=== PATIENT | female | born 1970 | race Caucasian/White ===

== ENCOUNTER 2017-07-06 11:11 | Emergency (ER) | payer MEDICAID ==
[~2017-07-06] VITALS: Ht 152.4 cm; Wt 52.3 kg
[2017-07-06 12:20] VITALS: BP 122/87
== END 2017-07-06 12:33 | disposition home or self-care (01) ==
LOC: EMS 11:12
DX: H91.8X9 Other specified hearing loss, unspecified ear (principal); F17.210 Nicotine dependence, cigarettes, uncomplicated
CPT/HCPCS: 99281; 99406

== ENCOUNTER 2017-12-31 09:32 | Emergency (ER) | payer MEDICAID ==
[~2017-12-31] VITALS: Ht 162.6 cm; Wt 63.5 kg
[2017-12-31 12:54] VITALS: BP 110/72
== END 2017-12-31 13:05 | disposition home or self-care (01) ==
LOC: EMS 09:33
DX: H57.02 Anisocoria (principal); F17.210 Nicotine dependence, cigarettes, uncomplicated; F20.9 Schizophrenia, unspecified; F19.10 Other psychoactive substance abuse, uncomplicated; Z98.51 Tubal ligation status; Z98.890 Other specified postprocedural states
CPT/HCPCS: 70450; 99284

== ENCOUNTER 2018-04-14 13:09 | Emergency (ER) | payer MEDICAID ==
[~2018-04-14] VITALS: Ht 152.4 cm; Wt 72.3 kg
[2018-04-14 13:58] VITALS: BP 125/79
== END 2018-04-14 14:46 | disposition home or self-care (01) ==
LOC: EMS 13:12
DX: M54.5 Low back pain (principal); R03.0 Elevated blood-pressure reading, without diagnosis of hypertension; F15.10 Other stimulant abuse, uncomplicated; F20.9 Schizophrenia, unspecified; F17.210 Nicotine dependence, cigarettes, uncomplicated
CPT/HCPCS: 99283

== ENCOUNTER 2018-07-29 16:14 | Emergency (ER) | payer MEDICAID ==
[~2018-07-29] VITALS: Ht 165.1 cm; Wt 75.0 kg
[2018-07-29 18:53] VITALS: BP 125/70
== END 2018-07-29 18:56 | disposition home or self-care (01) ==
LOC: EMS 16:15
DX: L84 Corns and callosities (principal); R03.0 Elevated blood-pressure reading, without diagnosis of hypertension; F20.9 Schizophrenia, unspecified; F17.210 Nicotine dependence, cigarettes, uncomplicated; F15.90 Other stimulant use, unspecified, uncomplicated; Z98.51 Tubal ligation status
CPT/HCPCS: 99284

== ENCOUNTER 2020-02-22 20:00 | Emergency (ER) | payer MEDICAID ==
[~2020-02-22] VITALS: Ht 154.9 cm; Wt 88.6 kg
[2020-02-22] MEDS ORDERED: SODIUM CHLORIDE 0.9% 2,700 ML IV ONE (21:15)
[2020-02-22] MEDS ORDERED: ACETAMINOPHEN 500 MG TABLET PO ONE (21:15)
[2020-02-22 21:39] LABS: EOSINOPHILS % (AUTO) 0.4 % (1.0-6.0); HEMATOCRIT 41.6 % (36-46); HEMOGLOBIN 13.5 g/dL (12.0-16.0); MEAN CORPUSCULAR HEMOGLOBIN 29.2 pg (26.0-34.0); MEAN CORPUSCULAR HGB CONC 32.5 G/dL (31.0-37.0); MEAN CORPUSCULAR VOLUME 90 fL (80-100); MONOCYTES # (AUTO) 1.1 K/uL (0.1-1.0); MONOCYTES % (AUTO) 9.3 % (2.0-9.0); NEUTROPHILS # (AUTO) 8.4 K/uL (1.8-7.7); NEUTROPHILS % (AUTO) 72.3 % (40.0-70.0); PLATELET COUNT (AUTO) 218 K/uL (150-450); RED BLOOD CELL COUNT(AUTO) 4.63 MIL/uL (4.00-5.20); RED CELL DISTRIBUTION WIDTH 14.5 % (11.5-14.5)
[2020-02-22 21:54] LABS: ANION GAP 12 mmol/L (8-16); CALCIUM, TOTAL 9.3 mg/dL (8.8-10.5); CARBON DIOXIDE 24 mmol/L (22-29); CHLORIDE 102 mmol/L (98-107); CREATININE 0.91 mg/dL (0.60-1.30); GLOMERULAR FILTR. RATE CALC > 60 mL/min (>60); GLUCOSE,RANDOM 104 mg/dL (70-110); POTASSIUM 4.1 mmol/L (3.5-5.1); SODIUM SERUM 138 mmol/L (136-145); UREA NITROGEN, BLOOD 14 mg/dL (7-18)
[2020-02-22 22:13] LABS: B-TYPE NATRIURETIC PEPTIDE 11 pg/mL (0-100)
[2020-02-22 22:17] LABS: LACTIC ACID 0.7 mmol/L (0.4-2.0)
[2020-02-22 22:20] LABS: ALANINE AMINOTRANSFERASE 21 U/L (12-78); ALBUMIN 3.7 g/dL (3.4-5.0); ALKALINE PHOSPHATASE 108 U/L (46-116); ASPARTATE AMINOTRANSFERASE 15 U/L (15-37); BILIRUBIN,TOTAL 0.1 mg/dL (0.1-1.0); HCG,QUANTITATIVE 3 mIU/mL (0-6); LIPASE 161 U/L (73-393); TOTAL PROTEIN, SERUM 7.6 g/dL (6.4-8.2)
[2020-02-22 23:27] LABS: INFLUENZA TYPE A NEGATIVE FOR TYPE A (NEGATIVE); INFLUENZA TYPE B NEGATIVE FOR TYPE B (NEGATIVE)
[2020-02-22 23:56] LABS: APPEARANCE,URINE CLEAR (CLEAR); BILIRUBIN,URINE NEGATIVE (NEGATIVE); GLUCOSE, URINE (UA) NEGATIVE (NEGATIVE); KETONES,URINE NEGATIVE (NEGATIVE); LEUKOCYTE ESTERASE ,URINE TRACE (NEGATIVE); NITRATE,URINE NEGATIVE (NEGATIVE); OCCULT BLOOD,URINE MODERATE (NEGATIVE); PROTEIN,URINE NEGATIVE (NEGATIVE)
[2020-02-23 00:02] LABS: AMPHET/METH SCREEN,URINE NEGATIVE (NEGATIVE); BARBITURATE SCREEN, URINE NEGATIVE (NEGATIVE); BENZODIAZEPINES SCREEN,URINE NEGATIVE (NEGATIVE); CANNABINOID SCREEN,URINE NEGATIVE (NEGATIVE); COCAINE SCREEN,URINE NEGATIVE (NEGATIVE); METHADONE SCREEN, URINE NEGATIVE (NEGATIVE); OPIATE SCREEN,URINE NEGATIVE (NEGATIVE)
[2020-02-23 00:03] LABS: PHENCYCLIDINE SCREEN,URINE NEGATIVE (NEGATIVE)
[2020-02-23 00:07] LABS: BACTERIA,URINE None Seen /HPF (None Seen); SQUAMOUS EPITHELIAL CELL,UR Rare /LPF (None Seen); WBC,URINE 0-2 /HPF (0-5)
[2020-02-23 01:15] VITALS: BP 107/56
== END 2020-02-23 01:57 | disposition home or self-care (01) ==
LOC: EMS 20:02
DX: R50.9 Fever, unspecified (principal); F17.210 Nicotine dependence, cigarettes, uncomplicated; F20.9 Schizophrenia, unspecified; F15.10 Other stimulant abuse, uncomplicated; Z03.818 Encounter for observation for suspected exposure to other biological agents ruled out
CPT/HCPCS: 36415; 71045; 80053; 80307; 81001; 83605; 83690; 83735; 83880; 84484; 84702; 85025; 87040; 87635; 87804; 93005; 99285; G0480; J7030